=== PATIENT | female | born 1965 | race Caucasian/White ===

== ENCOUNTER 2018-06-15 07:32 | Day surgery (SDC) | payer BC ==
[~2018-06-15] VITALS: Ht 167.6 cm; Wt 104.3 kg
[~2018-06-15 07:32] MED LIST: EFFEXOR75 MG PO; EQL IBUPROFEN200 M1 PO; NEXIUM20 M1 PO; TRAMADOL HCL50 MG PO
[2018-06-15 10:02] VITALS: BP 122/74
== END 2018-06-15 10:16 | disposition home or self-care (01) | DRG 556 ==
LOC: ORM 07:32
PROVIDERS: ATTEND Anesthesiology Pain Medicine
PROC: 3E0U33Z Introduction of Anti-inflammatory into Joints, Percutaneous Approach (ICD-10-PCS; principal; 2018-06-15)
PROC: 3E0U3BZ Introduction of Anesthetic Agent into Joints, Percutaneous Approach (ICD-10-PCS; 2018-06-15)
PROC: 3E0U33Z Introduction of Anti-inflammatory into Joints, Percutaneous Approach (ICD-10-PCS; 2018-06-15)
PROC: 3E0U3BZ Introduction of Anesthetic Agent into Joints, Percutaneous Approach (ICD-10-PCS; 2018-06-15)
DX: M25.561 Pain in right knee (principal); M76.31 Iliotibial band syndrome, right leg; M76.51 Patellar tendinitis, right knee

== ENCOUNTER 2018-07-06 07:39 | Day surgery (SDC) | payer BC ==
[2018-07-06] MEDS ORDERED: TRAMADOL HCL50 MG PO (09:33)
[2018-07-06 11:16] VITALS: BP 105/59
== END 2018-07-06 10:14 | disposition home or self-care (01) | DRG 552 ==
LOC: ORM 07:39
PROVIDERS: ATTEND Anesthesiology Pain Medicine
PROC: 3E0U33Z Introduction of Anti-inflammatory into Joints, Percutaneous Approach (ICD-10-PCS; principal; 2018-07-06)
PROC: 3E0U3BZ Introduction of Anesthetic Agent into Joints, Percutaneous Approach (ICD-10-PCS; 2018-07-06)
DX: M46.1 Sacroiliitis, not elsewhere classified (principal); M54.5 Low back pain

== ENCOUNTER 2018-08-17 06:20 | Day surgery (SDC) | payer BC ==
[2018-08-17] MEDS ORDERED: TRAMADOL HCL50 MG PO (09:15)
[2018-08-17 09:25] VITALS: BP 115/70
[2018-08-30] MEDS ORDERED: TRAMADOL HCL50 MG PO (08:49)
== END 2018-08-17 09:35 | disposition home or self-care (01) | DRG 552 ==
LOC: ORM 06:20
PROVIDERS: ATTEND Anesthesiology Pain Medicine
PROC: 3E0U33Z Introduction of Anti-inflammatory into Joints, Percutaneous Approach (ICD-10-PCS; principal; 2018-08-17)
PROC: 3E0U3BZ Introduction of Anesthetic Agent into Joints, Percutaneous Approach (ICD-10-PCS; 2018-08-17)
PROC: 3E0233Z Introduction of Anti-inflammatory into Muscle, Percutaneous Approach (ICD-10-PCS; 2018-08-17)
PROC: 3E023BZ Introduction of Anesthetic Agent into Muscle, Percutaneous Approach (ICD-10-PCS; 2018-08-17)
DX: M46.1 Sacroiliitis, not elsewhere classified (principal); G57.03 Lesion of sciatic nerve, bilateral lower limbs
CPT/HCPCS: Q9967

== ENCOUNTER → 2018-08-23 | Outpatient (REF) | payer BC | END | disposition home or self-care (01) | DRG 552 | LOC: MRI 08-22 09:30 | PROVIDERS: ATTEND Anesthesiology Pain Medicine | DX: M54.5 Low back pain (principal) ==